=== PATIENT | female | born 1970 | race Caucasian/White ===

== ENCOUNTER → 2017-10-03 | Outpatient (CLI) | payer OTHER ==
[~2017-10-03] MED LIST: ADULT LOW DOSE81 MG PO; EFFEXOR XR75 MG PO; FLEXERIL PO; GLUCOPHAGE1000 MG PO; NAPROSYN500 MG PO; XANAX 0.25 MG0.25 MG PO
== END ==
LOC: M.CT 12:00
DX: R10.31 Right lower quadrant pain (principal); R10.2 Pelvic and perineal pain; R10.9 Unspecified abdominal pain; M47.895 Other spondylosis, thoracolumbar region; Z90.710 Acquired absence of both cervix and uterus